=== PATIENT | male | born 1950 | race Caucasian/White ===

== ENCOUNTER 2017-03-05 06:41 | Day surgery (SDC) | payer OTHER ==
[2017-03-05] MEDS ORDERED: NS 1,000 ML IV SCH (07:30)
[2017-03-05 07:59] LABS: HEMATOCRIT 50.8 % (40.0-51.0)
[2017-03-05 08:09] LABS: INR 1.03 (0.83-1.16); PROTIME(PATIENT) 13.4 SEC (12.0-15.0)
[2017-03-05 08:10] LABS: APTT 28.7 SEC (23.0-38.0)
[2017-03-05] MEDS ORDERED: NALOXONE HCL 0.4 MG/ML INJ ONE (08:18)
[2017-03-05] MEDS ORDERED: FLUMAZENIL 0.5 MG/5 ML MDV IVP ONE (08:18)
[2017-03-05] MEDS ORDERED: MIDAZOLAM 2 MG/2 ML VIAL ONE (08:18)
[2017-03-05] MEDS ORDERED: fentaNYL 100 MCG/2 ML INJ ONE (08:19)
[2017-03-05 11:26] VITALS: RESP 13
[2017-03-05 12:32] VITALS: BP 143/84; O2SAT 98
[2017-03-08 13:16] LABS: FINAL DIAGNOSIS See Comments; MICROSCOPIC DESCRIPTION See Comments
== END 2017-03-05 12:48 | disposition home or self-care (01) ==
LOC: FIMAGING 06:41
PROVIDERS: ATTEND Radiology Diagnostic Radiology
PROC: 0BBG3ZX Excision of Left Upper Lung Lobe, Percutaneous Approach, Diagnostic (ICD-10-PCS; principal; 2017-03-05 09:35)
PROC: BB281ZZ Computerized Tomography (CT Scan) of Left Tracheobronchial Tree using Low Osmolar Contrast (ICD-10-PCS; principal; 2017-03-05 09:35)
DX: C34.12 Malignant neoplasm of upper lobe, left bronchus or lung (principal)
CPT/HCPCS: 88184-90; 88185-91; J2250; J2310; J3010

== ENCOUNTER 2017-03-23 11:14 | Inpatient (IN) | payer OTHER ==
[2017-03-23] MEDS ORDERED: ALBUMIN 5% 250 ML BOTTLE IV ONE (11:18)
[2017-03-23] MEDS ORDERED: BUPIVACAINE/EPI 0.5% 30 ML SDV ONE (11:20)
--- NOTE | 2017-03-23 11:38 | PDHPUP ---
History & Physical Update H&P update statement: This history and physical update is based on an assessment of the patient which was completed after admission or registration (within 24 hours), but prior to the surgery/procedure. H&P update: H&P reviewed & patient examined, no change in patient's condition since H&P completed
[2017-03-23] MEDS ORDERED: ceFAZolin 2 GM/DEXTROSE 100 ML IV ONE (13:18)
[2017-03-23] MEDS ORDERED: fentaNYL 100 MCG/2 ML INJ ONE ×4 (13:39→18:48)
[2017-03-23] MEDS ORDERED: MIDAZOLAM 2 MG/2 ML VIAL ONE (13:39)
[2017-03-23] MEDS ORDERED: PROPOFOL/EMULSION 500 MG/50 ML BOTTLE IV ONE ×4 (13:39→16:33)
[2017-03-23] MEDS ORDERED: LIDOCAINE 1% 2 ML INJ ID PRN (14:00)
[2017-03-23] MEDS ORDERED: LR 1,000 ML IV ONE (14:00)
[2017-03-23 14:05] LABS: % IMMATURE GRANULYOCYTES 0.3 % (0.0-1.1); ABSOLUTE IMMATURE GRANULOCYTES 0.02 10^3/uL (0.00-0.10); ADD DIFF? NO; ADD MORPH? NO; ADD SCAN? NO; ATYPICAL LYMPHOCYTE FLAG 10 (0-99); FRAGMENT RBC FLAG 0 (0-99); HEMATOCRIT 48.1 % (40.0-51.0); HEMOGLOBIN 16.9 g/dL (13.7-17.5); LEFT SHIFT FLG 0 (0-99); LIPEMIA HEMOLYSIS FLAG 90 (0-99); MEAN CELL HEMOGLOBIN 31.4 pg (27.9-34.1); MEAN CELL HEMOGLOBIN CONCENTR. 35.1 g/dL (32.4-36.7); MEAN CELL VOLUME 89.4 fL (81.5-99.8); MEAN PLATELET VOLUME 9.7 fL (8.7-11.7); PLATELET CLUMPS FLAG 10 (0-99); PLATELET COUNT 242 10^3/uL (150-400); RED BLOOD CELL COUNT 5.38 10^6/uL (4.40-6.38); RED CELL DISTRIBUTION WIDTH 12.7 % (11.5-15.2)
[2017-03-23] MEDS ORDERED: BUPIVACAINE 0.5% 30 ML SDV ONE (14:10)
[2017-03-23] MEDS ORDERED: THROMBIN (BOVINE) 5,000 UNIT VIAL TP ONE (14:10)
[2017-03-23] MEDS ORDERED: METOCLOPRAMIDE 10 MG/2 ML VIAL ONE (14:33)
[2017-03-23] MEDS ORDERED: LIDOCAINE 2% 5 ML SDV ONE (14:33)
[2017-03-23] MEDS ORDERED: ONDANSETRON 4 MG/2 ML VIAL ONE (14:33)
[2017-03-23] MEDS ORDERED: DEXAMETHASONE 4 MG/ML VIAL ONE (14:33)
[2017-03-23] MEDS ORDERED: epHEDrine SULFATE 10 MG/ML SYR ONE ×2 (14:33→14:40)
[2017-03-23] MEDS ORDERED: ROCURONIUM 50 MG/5 ML VIAL ONE ×3 (14:33→16:35)
--- NOTE | 2017-03-23 15:01 | PDANEPAE ---
ANE Past Medical History - Cardiovascular History Hx Hypertension: Yes Hx Arrhythmias: No Hx Chest Pain: No Hx Coronary Artery / Peripheral Vascular Disease: No Hx CHF / Valvular Disease: No Hx Palpitations: No - Pulmonary History Hx COPD: No Hx Asthma/Reactive Airway Disease: No Hx Recent Upper Respiratory Infection: No Hx Oxygen in Use at Home: No Hx Sleep Apnea: No Sleep Apnea Screening Result - Last Documented: Positive - Neurologic History Hx Cerebrovascular Accident: No Hx Seizures: No Hx Dementia: No - Endocrine History Hx Diabetes: No - Renal History Hx Renal Disorders: No - Liver History Hx Hepatic Disorders: No - Neurological & Psychiatric Hx Hx Neurological and Psychiatric Disorders: No - Cancer History Hx Cancer: No - Congenital Disorder History Hx Congenital Disorders: No - GI History Hx Gastrointestinal Disorders: No - Chronic Pain History Chronic Pain: No - Surgical History Prior Surgeries: Tonsillectomy. Mandible/Maxillary realignment. Vasectomy ANE Review of Systems Review of Systems: - Exercise capacity METS (RN): 4 METS ANE Patient History - Allergies Allergies/Adverse Reactions: codeine Allergy (Verified 03/22/17 16:44) Other-Enter Comments - Home Medications Home Medications: Aspirin EC [Aspirin EC 81 mg (*)] 81 mg PO DAILY 03/22/17 [Last Taken 03/15/17 06:00] Metoprolol Succinate Xr [Toprol Xl 25 mg (*)] 25 mg PO DAILY@06 03/22/17 [Last Taken 03/23/17 06:30] Simvastatin 10 mg PO HS 03/22/17 [Last Taken 03/22/17 22:00] - NPO status NPO Since - Liquids (Date): 03/23/17 NPO Since - Liquids (Time): 10:00 NPO Since - Solids (Date): 03/22/17 NPO Since - Solids (Time): 20:00 - Smoking Hx Smoking Status: Never smoked - Family Anes Hx Family Hx Anesthesia Complications: None ANE Labs/Vital Signs - Labs Result Diagrams: 03/23/17 13:55 - Vital Signs Blood Pressure: 150/85 Heart Rate: 60 Respiratory Rate: 16 O2 Sat (%): 96 Height: 175.26 cm Weight: 106.594 kg ANE Physical Exam - Airway Neck exam: short neck Mallampati Score: Class 3 Mouth exam: normal dental/mouth exam - Pulmonary Pulmonary: no respiratory distress, no rales or rhonchi, reduced air movement - Cardiovascular Cardiovascular: regular rate and rhythym, no murmur, rub, or gallop - ASA Status ASA Status: III ANE Anesthesia Plan Anesthesia Plan: general endotracheal anesthesia Lines/Monitors: arterial line, additional IV Specialized Airway: double lumen tube, video laryngoscope
[2017-03-23] MEDS ORDERED: DEXAMETHASONE 4 MG/ML VIAL IVP PRN (17:20)
[2017-03-23] MEDS ORDERED: PROMETHAZINE HCL 25 MG/ML INJ IVP PRN (17:20)
[2017-03-23] MEDS ORDERED: MEPERIDINE 25 MG/ML SYR IVP PRN (17:20)
[2017-03-23] MEDS ORDERED: ALBUTEROL 3 ML DEYVIAL IH PRN (17:20)
[2017-03-23] MEDS ORDERED: NALOXONE HCL 0.4 MG/ML INJ IVP PRN ×2 (17:20→18:16)
[2017-03-23] MEDS ORDERED: METOCLOPRAMIDE 10 MG/2 ML VIAL IVP PRN (17:20)
[2017-03-23] MEDS ORDERED: LR 500 ML IV PRN (17:20)
[2017-03-23] MEDS ORDERED: ONDANSETRON 4 MG/2 ML VIAL IVP PRN ×2 (17:20→18:08)
[2017-03-23] MEDS ORDERED: fentaNYL 100 MCG/2 ML INJ IVP PRN (17:20)
[2017-03-23] MEDS ORDERED: PROPOFOL 200 MG/20 ML VIAL ONE (17:39)
[2017-03-23] MEDS ORDERED: NS 1,000 ML IV SCH (18:15)
[2017-03-23] MEDS ORDERED: SUGAMMADEX SODIUM 200 MG/2 ML VIAL IVP ONE (18:16)
[2017-03-23] MEDS ORDERED: HYDROmorphONE/DILAUDID 6 MG/30 ML PCA IV PRN (18:16)
[2017-03-23] MEDS ORDERED: LACTULOSE 20 GM/30 ML UDCUP PO PRN (18:17)
[2017-03-23] MEDS ORDERED: MAGNESIUM HYDROXIDE 30 ML UDCUP PO PRN (18:17)
[2017-03-23] MEDS ORDERED: BISACODYL 10 MG SUPP PR PRN (18:17)
[2017-03-23] MEDS ORDERED: POLYETHYLENE GLYCOL 3350 17 GM PKT PO PRN (18:17)
--- NOTE | 2017-03-23 18:21 | POSTOPPROG ---
Post Op Note Date of Operation: 03/23/17 Surgeon: Murali Duffy Preparatory Technician: Terrie Watts Anesthesiologist: Rhonda Gomez Anesthesia: GET(General Endotracheal) Pre-op Diagnosis: LLL lung adenocarcinoma Post-op Diagnosis: same Procedure: mediastinoscopy c LN bx, L VATS c LLL resection Findings: clear bronchial margins, tumor grossly 7 cm from margin Inf/Abcess present in the surg proc area at time of surgery?: No EBL: 50-100 Complications: none Specimen(s): mediastinal LN's and LLL to pathology
[2017-03-23] MEDS: PRAVASTATIN SODIUM 20 MG TAB PO SCH (20:46)
[2017-03-23] MEDS: SENNOSIDES/DOCUSATE SODIUM TAB PO SCH (20:46)
[2017-03-23] MEDS: OXYCODONE/APAP 5/325 TAB PO PRN (21:24)
[2017-03-23] MEDS: BUPIVACAINE 0.5% 30 ML SDV MISC SCH (22:21)
[2017-03-24] MEDS: BUPIVACAINE 0.5% 30 ML SDV MISC SCH ×6 (01:55→22:15)
[2017-03-24] MEDS: OXYCODONE/APAP 5/325 TAB PO PRN ×5 (01:55→22:19)
[2017-03-24] MEDS: METOPROLOL SUCCINATE XR 25 MG TAB PO SCH (05:52)
[2017-03-24 06:31] LABS: HEMATOCRIT 44.8 % (40.0-51.0); HEMOGLOBIN 15.6 g/dL (13.7-17.5)
[2017-03-24] MEDS: SENNOSIDES/DOCUSATE SODIUM TAB PO SCH ×2 (08:43→22:15)
[2017-03-24] MEDS: ASPIRIN EC 81 MG TAB PO SCH (08:43)
--- NOTE | 2017-03-24 09:49 | SOAPPROG ---
SOAP Progress Note Assessment/Plan: Assessment/Plan: 66 Y M s/p mediastinoscopy and L VATS c LLL resection for adenoCA. POD#1. Doing well. Chest tube output 280. No air leak. +tidaling. Pain controlled. Tolerating regular diet. Has been OOB. [place] out. +void since. Dispo: med surg status. S: see above. No complaints. O: alert nad ctab anteriorly no air leak, +tidal rrr abd soft wounds well dressed 03/24/17 09:47 Objective: Vital Signs Temp Pulse Resp BP Pulse Ox 36.9 C 64 19 162/72 H 98 03/24/17 08:58 03/24/17 08:58 03/24/17 08:58 03/24/17 08:58 03/24/17 08:58 Laboratory Results 03/24/17 06:15 03/23/17 03/24/17 03/25/17 05:59 05:59 05:59 Intake Total 900 Output Total 2630 Balance -1730 ICD10 Worksheet Patient Problems: Problems Problem Status Onset Lung cancer, lower lobe Acute - ICD10 Problem Qualifiers (1) Lung cancer, lower lobe Qualifiers: Laterality: left Qualified Code(s): C34.32 - Malignant neoplasm of lower lobe, left bronchus or lung
--- NOTE | 2017-03-24 10:00 | ASMTCMCOM ---
CM Note CM Note Notes: Patient is POD #1 VATS with LLL resection. Doing well, likely to tx to Med/Surg today. Has and good support at home. No therapies ordered, anticipate independent discharge. CM available for any needs. Date Signed: 03/24/2017 09:59 AM Electronically Signed By:Janelle Mariscal RN
--- NOTE | 2017-03-24 13:34 | GCON ---
[f rep st] CONSULTATION PULMONARY CONSULTATION DATE OF CONSULTATION: 03/24/2017 HISTORY OF PRESENT ILLNESS: This patient is a 66-year-old male with a history of recently diagnosed lung cancer who underwent a lobectomy and mediastinoscopy yesterday. He apparently had some suspicio us infiltrates on cardiovascular screening CT scan that eventually showed a rapidly growing lung mass . He underwent PET scanning that showed no uptake, other than in the primary region, and had an unev entful surgery yesterday. There were no complications, and he has remained hemodynamically stable wi th minimal oxygen requirements. REVIEW OF SYSTEMS: Otherwise negative. PAST MEDICAL HISTORY: Includes: 1. Hypertension. 2. Lung cancer. 3. Hyperlipidemia. PAST SURGICAL HISTORY: Includes maxillary and mandibular realignment surgery, tonsillectomy, and vas ectomy. FAMILY HISTORY: Includes coronary artery disease, but no lung cancer. SOCIAL HISTORY: He is a nonsmoker with occasional alcohol, but no alcohol-related issues. CURRENT MEDICATIONS: Include aspirin, Lovenox, Dilaudid INJECTION MOLDING PROCESS TECHNICIAN, Toprol-XL, Zofran, Percocet, Pravachol, and normal saline. PHYSICAL EXAMINATION: VITAL SIGNS: He had a blood pressure of 162/72, heart rate of 64, respiration s 19, oxygen saturation 98% on 3 L. GENERAL: He is awake and alert, in no apparent distress. Spoke in full sentences without using accessory muscles for breathing. HEENT: Pupils equally round and r eactive to light. Nonicteric and noninjected. Mucous membranes are moist, without erythema or exuda te. NECK: Supple, without adenopathy or jugular vein distention. LUNGS: Breath sounds were dimini shed, but mostly clear to auscultation. HEART: Regular rate and rhythm, without obvious murmur. AB DOMEN: Soft and nontender, without hepatosplenomegaly. EXTREMITIES: No clubbing, cyanosis, or massiel a. OBJECTIVE DATA: Includes a chest x-ray showing his chest tubes in adequate position. His hematocrit today is 44. CBC yesterday was unremarkable. ASSESSMENT/PLAN: 1. What sounds to be stage IA lung cancer, status post resection, doing quite well. We will wait fo r the final pathology, but it sounds like the tissue margins were free of tumor and will find out wha t his lymph nodes showed on the mediastinoscopy. In any case, further followup will be through tai Duffy or Oncology or his primary care physician. 2. Chest tubes appear to be fairly stable at this time. I will defer to Dr. Duffy in terms of remov al, but that likely can be removed in the next day or two. He is stable for the floor. /[id number]/MODL
--- NOTE | 2017-03-24 14:48 | POSTANESTH ---
Post Anesthetic Evaluation Cardiovascular Status: Normal, Stable Respiratory Status: Normal, Stable Level of Consciousness/Mental Status: Mildly Sleepy, Arousable Pain Control: Adequate, Prn Tx Ordered Nausea/Vomiting Control: Adequate, Prn Tx Ordered Complications Possibly Related to Anesthesia: None Noted
[2017-03-24] MEDS: PRAVASTATIN SODIUM 20 MG TAB PO SCH (22:15)
[2017-03-25] MEDS: BUPIVACAINE 0.5% 30 ML SDV MISC SCH ×6 (02:05→22:02)
[2017-03-25] MEDS: OXYCODONE/APAP 5/325 TAB PO PRN ×6 (02:06→22:03)
[2017-03-25] MEDS: METOPROLOL SUCCINATE XR 25 MG TAB PO SCH (06:36)
[2017-03-25] MEDS: ASPIRIN EC 81 MG TAB PO SCH (10:26)
[2017-03-25] MEDS: ENOXAPARIN 40 MG/0.4 ML SYR SC SCH (10:26)
[2017-03-25] MEDS: SENNOSIDES/DOCUSATE SODIUM TAB PO SCH ×2 (10:26→21:41)
--- NOTE | 2017-03-25 13:43 | ASMTCMCOM ---
CM Note CM Note Notes: Call from KAIDEN Garcia CM at [facility] ([phone] [id number]). Per Radha, patient's insurances requests that we call [facility] for any DME or home care needs. [phone] Date Signed: 03/25/2017 01:43 PM Electronically Signed By:Janelle Mariscal RN
--- NOTE | 2017-03-25 17:58 | SOAPPROG ---
SOAP Progress Note Assessment/Plan: Assessment: 66 Y M s/p mediastinoscopy and L VATS c LLL resection for adenoCA. POD#2. Recovering well. CT output 270cc. Will plan to pull it tomorrow. No air leak. Dressing taken down today, incisions healing well. Replaced with xeroform and gauze Tolerating regular diet, continue Continue pain management Discussed c Dr. Duffy S: Feeling well, pain controlled. Denies SOB, dyspnea, lightheadedness O: Pt sitting up in chair, NAD MMM CTAB, no increased WOB RRR Dressing take down- incisions C/D/I with steris. CT sites c/d CT without air leak Abd soft Objective: Vital Signs Temp Pulse Resp BP Pulse Ox 36.9 C 64 17 175/76 H 95 03/25/17 16:00 03/25/17 16:00 03/25/17 16:00 03/25/17 16:00 03/25/17 16:00 Laboratory Results 03/24/17 06:15 03/24/17 03/25/17 03/26/17 05:59 05:59 05:59 Intake Total 900 750 Output Total 2630 270 Balance -1730 480 ICD10 Worksheet Patient Problems: Problems Problem Status Onset Lung cancer, lower lobe Acute
[2017-03-25] MEDS: PRAVASTATIN SODIUM 20 MG TAB PO SCH (20:25)
[2017-03-26] MEDS: OXYCODONE/APAP 5/325 TAB PO PRN ×3 (02:04→10:09)
[2017-03-26] MEDS: BUPIVACAINE 0.5% 30 ML SDV MISC SCH ×4 (02:04→14:18)
[2017-03-26] MEDS: METOPROLOL SUCCINATE XR 25 MG TAB PO SCH (06:38)
[2017-03-26] MEDS: ASPIRIN EC 81 MG TAB PO SCH (08:47)
[2017-03-26] MEDS: ENOXAPARIN 40 MG/0.4 ML SYR SC SCH (08:47)
[2017-03-26] MEDS: SENNOSIDES/DOCUSATE SODIUM TAB PO SCH (08:47)
--- NOTE | 2017-03-26 09:14 | SOAPPROG ---
SOAP Progress Note Assessment/Plan: Assessment: NO AIR LEAK/ VERY COMFORTABLE/ PATH PENDING/ WOUND OK/ MODERATE DRAINAGE CXR PENDING Plan:HOPEFULLY DC CHEST TUBES TODAY 03/26/17 09:12 Objective: Vital Signs Temp Pulse Resp BP Pulse Ox 36.9 C 63 12 162/73 H 93 03/26/17 08:00 03/26/17 08:00 03/26/17 08:00 03/26/17 08:00 03/26/17 08:00 Laboratory Results 03/24/17 06:15 03/25/17 03/26/17 03/27/17 05:59 05:59 05:59 Intake Total 750 Output Total 270 290 Balance 480 -290 ICD10 Worksheet Patient Problems: Problems Problem Status Onset Lung cancer, lower lobe Acute
--- NOTE | 2017-03-26 15:42 | ASDISCHSUM ---
Discharge Information Plan Status:Home with No Needs Medically Cleared to Leave:03/26/2017 Discharge Date:03/26/2017 CM D/C Disposition:Home, Routine, Self-Care ADT D/C Disposition:Home, Routine, Self-Care Projected Discharge Date:03/26/2017 Transportation at D/C:Family Discharge Delay Reason: Follow-Up Date:03/26/2017 Discharge Slot: Final Diagnosis: Placement Information Patient Contact Information Contact Name:FILI Relationship: Address:[address] Home Phone: City:[place] Alternate Phone: State/Zip Code:[place] [address] Email: Financial Information Financial [facility] Desc[facility] Primary Plan Number:[id number] Secondary Plan Desc: Secondary Plan Number: Assessment Information [facility] Progress Note CM Note CM Note Notes: Patient is POD #1 VATS with LLL resection. Doing well, likely to tx to Med/Surg today. Has and good support at home. No therapies ordered, anticipate independent discharge. CM available for any needs. Date Signed: 03/24/2017 09:59 AM Electronically Signed By:Janelle Mariscal RN [facility] Progress Note CM Note CM Note Notes: Call from KAIDEN Garcia CM at [facility] ([phone]). Per Radha, patient's insurances requests that we call [facility] for any DME or home care needs. [phone] Date Signed: 03/25/2017 01:43 PM Electronically Signed By:Janelle Mariscal RN [facility] CM Progress Note CM Note CM Note Notes: Pt is discharging home today with no CM needs. Date Signed: 03/26/2017 03:41 PM Electronically Signed By:BILLY Farr Intervention Information
[2017-03-26 16:00] VITALS: BP 145/75; PULSE 60; RESP 18; TEMP 97.7; O2SAT 96
--- NOTE | 2017-03-31 05:03 | GOP ---
[f rep st] OPERATIVE REPORT DATE OF OPERATION: 03/23/2017 SURGEON: Murali Duffy MD ENGINE SERVICE REPAIRER: CHELY Bruce. ANESTHESIOLOGIST: Aleena Gomez MD. PREOPERATIVE DIAGNOSIS: Lung cancer. POSTOPERATIVE DIAGNOSIS: Lung cancer. PROCEDURE PERFORMED: Mediastinoscopy. FINDINGS: The patient was found to have benign-appearing mediastinal nodes. DESCRIPTION OF PROCEDURE: The patient was taken to the operating room where he received satisfactory general endotracheal anesthesia by Dr. Gomez. Patient in the supine position, prepped and draped in the usual sterile fashion. A low collar neck incision was made and carried down through the platysm a. Strap muscles were in the midline and pretracheal space was entered. Thyroid was retrac gladys cephalad using blunt dissection. The space was entered. The mediastinoscope was entered using g entle dissection. The mediastinal lymph node was dissected free and sent for frozen section, which wa s visually return to normal. Hemostasis was obtained. There were no complications. The mediastinos cope was removed. Strap muscles were approximated with 3-0 Vicryl and platysma was closed with a run tez 3-0 Vicryl suture, skin with a 4-0 Monocryl subcuticular stitch. The wound was infiltrated with 0.25% Marcaine. He tolerated the procedure well. No complications. /[id number]/MODL
--- NOTE | 2017-03-31 05:18 | GOP ---
[f rep st] OPERATIVE REPORT DATE OF OPERATION: 03/23/2017 SURGEON: Murali Duffy MD OPERATIONS SUPERVISOR CHEMICAL CLEANING: CHELY Bruce. ANESTHESIOLOGIST: Aleena Gomez MD. PREOPERATIVE DIAGNOSIS: Left lower lobe lung cancer. POSTOPERATIVE DIAGNOSIS: Left lower lobe lung cancer. PROCEDURE PERFORMED: Video-assisted thoracoscopic surgery assisted left lower lobectomy with mediast inal and hilar lymph node biopsy. FINDINGS: The patient was found to have enlarged hilar and mediastinal nodes which appeared to be be nign and a 3 cm lesion in the left lower lobe of the lung. DESCRIPTION OF PROCEDURE: The patient was taken to the operating room where he received satisfactory general endotracheal anesthesia by Dr. Gomez with a double-lumen endotracheal tube and art line. H e was placed in the right lateral decubitus position, prepped and draped in the usual sterile fashion . A short incision was made in the 7th intercostal space and mid axillary line. A trocar was introd uced, laparoscope introduced, and good visualization was obtained. The lower lobe was retracted away from the upper lobe. A fissure was developed and the inferior pulmonary artery was dissected free a nd encircled after the dissection the lower lobe artery was then divided with an Endo-MEHUL stapler. T he superior segmental artery was handled separately with the Endo-MEHUL stapler. Much care was made to avoid injury to the left lower lobe vessels. After adequate division of the lower lobe, the inferio r pulmonary vein was dissected free. It too was then encircled and divided with the Endo-MEHUL stapler . Inferior pulmonary ligament had been fully divided to allow exposure of the inferior pulmonary vei n. The bronchus to the upper lobe was then skeletonized. Hemostasis was obtained. The lower lobe b ronchus was then cross clamped and the lung was re-expanded with good flow into the upper lobe, that was again deflated and the bronchus was divided with the Endo-MEHUL stapler. Hemostasis was assured. One of the trocar sites was enlarged. The specimen was placed in a specimen bag and brought out thro ugh the trocar site, sent to Pathology for evaluation. Hemostasis was fully obtained. The water sea l on the bronchus was checked underwater and appeared to be quite airtight. Two 28-Kiswahili chest tube s were brought in through one of the trocar sites and secured to the skin with silk sutures. The wou nd was then closed using running 0 Vicryl suture for the muscular layers of the thoracotomy incision. Subcu was closed with 2-0 Vicryl, and the skin with skin iesha. The trocar sites were closed wit h 4-0 Monocryl subcuticular sutures for the skin where necessary. All wounds were infiltrated with 0 .25% Marcaine. The specimen was sent to Pathology who had confirmed the clear margins. He was taken to the recovery room in good condition. /[id number]/MODL
== END 2017-03-26 16:16 | disposition home or self-care (01) | DRG 165 ==
LOC: F3E 11:14 → F2N 19:05
PROVIDERS: ADMIT Surgery; ATTEND Surgery
PROC: 0BTJ4ZZ Resection of Left Lower Lung Lobe, Percutaneous Endoscopic Approach (ICD-10-PCS; principal; 2017-03-23 14:00)
PROC: 07B74ZX Excision of Thorax Lymphatic, Percutaneous Endoscopic Approach, Diagnostic (ICD-10-PCS; principal; 2017-03-23 14:00)
DX: C34.32 Malignant neoplasm of lower lobe, left bronchus or lung (principal); I10 Essential (primary) hypertension; E78.5 Hyperlipidemia, unspecified
CPT/HCPCS: J0690; J1100; J1650; J2250; J2405; J2704; J2765; J3010; P9041

== ENCOUNTER → 2017-03-29 | Outpatient (CLI) | payer OTHER | LOC: FIMAGING 13:29 | PROVIDERS: ATTEND Surgery | DX: Z90.2 Acquired absence of lung [part of] (principal); Z85.118 Personal history of other malignant neoplasm of bronchus and lung ==

== ENCOUNTER → 2017-04-16 | Outpatient (CLI) | payer OTHER | LOC: FIMAGING 16:25 | PROVIDERS: ATTEND Nurse Practitioner | DX: Z03.89 Encounter for observation for other suspected diseases and conditions ruled out (principal); K76.0 Fatty (change of) liver, not elsewhere classified; C34.32 Malignant neoplasm of lower lobe, left bronchus or lung ==

== ENCOUNTER → 2017-05-08 | Outpatient (CLI) | payer OTHER | LOC: FIMAGING 10:39 | PROVIDERS: ATTEND Internal Medicine Hematology & Oncology | DX: J90 Pleural effusion, not elsewhere classified (principal); K76.0 Fatty (change of) liver, not elsewhere classified; C34.32 Malignant neoplasm of lower lobe, left bronchus or lung ==